=== PATIENT | male | born 1965 ===

== ENCOUNTER 2017-06-14 11:23 | Inpatient (IN) | payer OTHER ==
[2017-06-14] MEDS ORDERED: Sodium Chloride 0.9% 1,000 ML IV STA ×2 (12:15→12:23)
--- NOTE | 2017-06-14 12:34 | ED PDOC ---
HPI: Abdomen Time Seen by Provider: 06/14/17 12:14 Chief Complaint (Nursing): Abdominal Pain Chief Complaint (Provider): Gross abdominal pain and blood in stool History Per: Patient (Bradley yegretchen davila patient presents to ED for evaluation with concern of abdominal pain and bloddy stool noted this morning, 30 monutes prior to arrival. Pt reports yesterday he has no symptoms. Pt reports this morning he awoke with feeling of chills and feeling "faint". Pt reports he could not consume food this morning. Urinated this morning with no issue. Pt reports on attempt to later defacate he noted a large amount of bright red blood, and passed neitther solid no fluid mass. This finding prompted pt to preent to ED. Pt describes pain throughout abdomen as sharp and stabbing. ) History/Exam Limitations: no limitations Onset/Duration Of Symptoms: Hrs (4) Current Symptoms Are (Timing): Still Present Severity: Severe Pain Scale Rating Of: 8 Location Of Pain/Discomfort: Diffuse Quality Of Discomfort: Sharp Associated Symptoms: Chills Exacerbating Factors: Movement, Upright Position, Deep Breaths Alleviating Factors: None Last Bowel Movement: Yesterday Past Medical History Vital Signs: Last Vital Signs Temp 98.6 F 06/14/17 11:26 Pulse 90 06/14/17 11:26 Resp 16 06/14/17 11:26 BP 141/84 06/14/17 11:26 Pulse Ox 100 06/14/17 12:41 - Medical History PMH: Anxiety, GERD Denies: Gastritis (denies), Chronic Kidney Disease - Family History Family History: States: No Known Family Hx - Living Arrangements Living Arrangements: With Family - Immunization History Hx Tetanus Toxoid Vaccination: No Hx Influenza Vaccination: No Hx Pneumococcal Vaccination: No - Home Medications Home Medications: Ambulatory Orders Medication Instructions Recorded ALPRAZolam [Xanax] 0.5 mg PO BID 06/18/16 Lidocaine 5% [Lidoderm] 1 ea TD PRN PRN #10 patch 06/19/16 Lipase/Protease/Amylase [Creon Dr 1 tab PO DAILY 08/19/16 3,000 Units Capsule] Lubiprostone [Amitiza] 24 mcg PO DAILY 08/19/16 traMADol 50 mg PO Q6H PRN 08/19/16 Nexium 40 mg PO 08/20/16 Linzess 145 mcg PO DAILY 08/22/16 Famotidine [Pepcid] 20 mg PO DAILY #14 tab 10/16/16 Sucralfate [Carafate] 1 gm PO TID #30 dose 10/16/16 - Allergies Allergies/Adverse Reactions: Allergies Allergy/AdvReac Type Severity Reaction Status Date / Time shellfish derived Allergy Severe ANAPHYLAXIS Verified 10/16/16 12:18 latex AdvReac RASH Verified 06/14/17 11:36 Nuts Allergy SHORTNESS Uncoded 06/14/17 11:36 OF BREATH Review of Systems ROS Statement: Except As Marked, All Systems Reviewed And Found Negative Constitutional: Positive for: Chills Gastrointestinal: Positive for: Abdominal Pain. Negative for: Diarrhea, Rectal Pain Physical Exam - Reviewed Vital Signs Reviewed: Yes - Physical Exam Appears: Positive for: Non-toxic, Uncomfortable Skin: Positive for: Normal Color Eye Exam: Positive for: Normal appearance, EOMI ENT: Positive for: Normal ENT Inspection. Negative for: Tonsillar Swelling Neck: Positive for: Normal, Painless ROM Respiratory: Positive for: Normal Breath Sounds. Negative for: Wheezing, Respiratory Distress Gastrointestinal/Abdominal: Positive for: Bowel Sounds, Tenderness, Distended. Negative for: Rebound Male Genital Exam: Positive for: inguinal tenderness. Negative for: epididymal tenderness, erythema, testicular tenderness (R), testicular tenderness (L) Back: Positive for: Normal Inspection Rectal: Negative for: Hemorrhoids, Tenderness Extremity: Positive for: Normal ROM. Negative for: Pedal Edema, Calf Tenderness - Laboratory Results Result Diagrams: 06/14/17 12:31 06/14/17 12:31 - ECG O2 Sat by Pulse Oximetry: 100 Disposition - Clinical Impression Clinical Impression: Abdominal pain - Disposition Disposition Time: 13:05 Condition: IMPROVED Forms: [facility] ([place]an)
[2017-06-14 12:40] LABS: VENOUS BLOOD GAS BASE EXCESS 2.6 mmol/L (0.0-2.0); VENOUS BLOOD GAS PCO2 47 mmHg (40-60); VENOUS BLOOD PH 7.39 (7.32-7.43)
[2017-06-14 12:43] LABS: RBC URINE 1 /hpf (0-3); URINE BILIRUBIN NEGATIVE (NEGATIVE); URINE BLOOD NEGATIVE (NEGATIVE); URINE COLOR STRAW (YELLOW); URINE GLUCOSE (UA) NEG (Normal); URINE KETONE NEGATIVE (NEGATIVE); URINE LEUKOCYTE ESTERASE NEG Leu/uL (Negative); URINE PROTEIN NEGATIVE (NEGATIVE); URINE UROBILINOGEN 0.2-1.0 mg/dL (0.2-1.0)
[2017-06-14 12:43] LABS: BASO # 0.1 K/uL (0.0-0.2); EOS # 0.1 K/uL (0.0-0.7); EOS % 1.8 % (0.0-4.0); HEMATOCRIT 44.9 % (35.0-51.0); LYMPH # 1.4 K/uL (1.0-4.3); LYMPH % 22.8 % (20.0-40.0); MEAN CELL VOLUME 88.3 fl (80.0-94.0); MEAN CORPUSCULAR HEMOGLOBIN 29.8 pg (27.0-31.0); MEAN CORPUSCULAR HGB CONC 33.8 g/dL (33.0-37.0); MONO # 0.6 K/uL (0.0-0.8); MONO % 10.2 % (0.0-10.0); NEUT % 64.2 % (50.0-75.0); NRBC % 0.1 % (0.0-0.0); RED CELL DISTRIBUTION WIDTH 13.6 % (11.5-14.5); WHITE BLOOD COUNT 6.2 K/uL (4.8-10.8)
[2017-06-14 13:02] LABS: ALB/GLOB RATIO 1.5 (1.0-2.1); ALKALINE PHOSPHATASE 73 U/L (38-126); ALT/SGPT 44 U/L (21-72); AST/SGOT 35 U/L (17-59); BILIRUBIN,TOTAL 0.5 mg/dl (0.2-1.3); BLOOD UREA NITROGEN 13 mg/dl (9-20); CALCIUM 9.4 mg/dL (8.4-10.2); CARBON DIOXIDE 25 mmol/L (22-30); CHLORIDE 106 mmol/L (98-107); GFR AFRICAN-AMERICAN > 60; GLUCOSE,RANDOM 98 mg/dL (75-110); LIPASE 167 U/L (23-300); POTASSIUM 4.4 MMOL/L (3.6-5.0); SODIUM 140 mmol/l (132-148)
[2017-06-14] MEDS ORDERED: Iohexol 300 100 ML IJ ONE (14:09)
[2017-06-14] MEDS ORDERED: Sodium Chloride 0.9% 50 ML IV ONE (14:09)
--- NOTE | 2017-06-14 15:01 | CT ---
PROCEDURE: CT Abdomen and Pelvis with contrast HISTORY: abd distension, LLQ tenderness, bloody stool COMPARISON: Noncontrast abdomen and pelvis CT exam 02/17/2014. TECHNIQUE: Helical CT of the abdomen pelvis was performed following intravenous contrast administration. Oral contrast was not administered as per referring physician request. Contrast dose: Omnipaque 300, 95 cc. Radiation dose: Total exam DLP = 1588 mGy-cm. This CT exam was performed using one or more of the following dose reduction techniques: Automated exposure control, adjustment of the mA and/or kV according to patient size, and/or use of iterative reconstruction technique. FINDINGS: LOWER THORAX: Limited bilateral basilar dependent atelectasis is appreciated. Punctate calcified granuloma again seen the left lower lobe. LIVER: Multiple small lucencies are slightly larger in the interval of the left lobe liver with the largest measuring 2.6 cm greatest dimension compared to 1.9 cm previously. GALLBLADDER AND BILE DUCTS: Unremarkable. PANCREAS: Unremarkable. No gross lesion or ductal dilatation. SPLEEN: Unremarkable. ADRENALS: Unremarkable. No mass. KIDNEYS AND URETERS: Unremarkable. No hydronephrosis. No solid mass. VASCULATURE: Unremarkable. No aortic aneurysm. BOWEL: Left colonic diverticular changes are appreciated seen concentrated at the sigmoid segment without acute findings however. Small bowel is unremarkable. No mesenteric edema appreciated throughout. APPENDIX: Normal appendix. PERITONEUM: Unremarkable. No free fluid. No free air. LYMPH NODES: Unremarkable. No enlarged lymph nodes. BLADDER: Unremarkable. REPRODUCTIVE: Unremarkable. BONES: No acute fracture. OTHER FINDINGS: None. IMPRESSION: 1. Left colonic diverticular changes are identified without acute findings. Lack of oral contrast administration limits evaluation of the small and large bowel. No mesenteric edema, ascites or gross lymphadenopathy. 2. Left hepatic lobe cysts slightly larger with examination otherwise unremarkable.
--- NOTE | 2017-06-14 15:31 | RAD ---
HISTORY: Abdominal pain. Free air suspected. COMPARISON: June 14, 2017. TECHNIQUE: Chest PA and lateral FINDINGS: LUNGS: No active pulmonary disease. PLEURA: No significant pleural effusion identified. No pneumothorax apparent. CARDIOVASCULAR: No radiographic findings to suggest acute or significant cardiovascular disease. OSSEOUS STRUCTURES: No significant abnormalities. VISUALIZED UPPER ABDOMEN: Normal. OTHER FINDINGS: None. IMPRESSION: No active disease. Specifically no free air identified.
--- NOTE | 2017-06-14 15:32 | RAD ---
PROCEDURE: Radiographs of the chest and abdomen (obstructive series) HISTORY: Abdominal pain and distention. COMPARISON: June 14, 2017. TECHNIQUE: AP radiograph of the chest, with upright and supine radiographs of the abdomen. FINDINGS: CHEST: Lungs: Clear. Cardiovascular: Normal size heart. No pulmonary vascular congestion. Pleura: No pleural fluid. No pneumothorax. Other findings: None. ABDOMEN AND PELVIS: Bowel: Unremarkable bowel gas pattern. No evidence of mechanical obstruction. Free air: None. Bones: Unremarkable. Other findings: Contrast identified in unremarkable collecting systems and urinary bladder. IMPRESSION: No acute findings related to/accounting for the clinical presentation.
--- NOTE | 2017-06-14 17:18 | ED PDOC ---
- Laboratory Results Result Diagrams: 06/14/17 12:31 06/14/17 12:31 - ECG ECG: Positive for: Interpreted By Me ECG Rhythm: Positive for: Normal QRS, ST/T Changes (2,v3,v4,v5,v6 new when compared to prev ecg 10/24) O2 Sat by Pulse Oximetry: 98 Pulse Ox Interpretation: Normal - Radiology X-Ray: Interpreted by Me X-Ray Interpretation: No Acute Disease - Progress Re-evaluation Time: 17:16 Condition: Improved Disposition Counseled Patient/Family Regarding: Studies Performed, Diagnosis, Need For Followup - Clinical Impression Clinical Impression: Abdominal pain, Near syncope - POA Present On Arrival: None - Disposition Disposition: Hospitalized as Observation Patient Disposition Time: 17:00 Condition: STABLE Forms: [facility] (Tajik)
[2017-06-15 06:46] LABS: HEMATOCRIT 42.7 % (35.0-51.0); MEAN CELL VOLUME 89.3 fl (80.0-94.0); MEAN CORPUSCULAR HEMOGLOBIN 29.6 pg (27.0-31.0); MEAN CORPUSCULAR HGB CONC 33.1 g/dL (33.0-37.0); RED CELL DISTRIBUTION WIDTH 14.2 % (11.5-14.5); WHITE BLOOD COUNT 7.8 K/uL (4.8-10.8)
[2017-06-15 06:49] LABS: PARTIAL THROMBOPLASTIN TIME 31.2 Seconds (25.6-37.1)
[2017-06-15] MEDS ORDERED: Chlorhexidine Gluconate 1 APPL/PKT TP ONE (08:11)
--- NOTE | 2017-06-15 08:38 | CP.PCM.CON ---
<Mary Ann Keith - Last Filed: 06/15/17 10:15> History of Present Illness - History of Present Illness History of Present Illness: PGY4 Initial GI Progress Note Moise Ch is a 51M w/ hx of anxiety and GERD who presented to the ER with complaints of BRBPR and abd pain. Pt statesthat he started to notice blood in his stool for the past 3-4months. He states that initially he would have intermittent bright red blood on his stool and while wiping. He denies any episodes of constipation or straining. He notes that yesterday he started to experience diffuse and pain with no focal area. He described the pain as being crampy. Pt states that in the morning he was also having a lack of appetite and chills. He denies any fevers or diaphoresis. Pt denies any recent travel, sick contacts, or abx use. Pt states that along with his abd pain, he experienced a sudden episode of urgency of having a BM. He described the BM as loose with mixed blood. Denies any recent NSAID use. He denies any similar previous episodes. PMHx: GERD, anxiety PSHx: testicle surgery? Social: Denies etoh, smoking or illicit drug use Endo hx: denies Family hx: mother: unspecified BISQUE TILE BURNER cancer ROS: 12-point ROS conducted, neg other than above Past Patient History - Infectious Disease Hx of Infectious Diseases: None - Past Medical History & Family History Past Medical History?: Yes - Past Social History Smoking Status: Never Smoked - CARDIAC Hx Cardiac Disorders: No - PULMONARY Hx Respiratory Disorders: Yes Other/Comment: Sinusitis - NEUROLOGICAL Hx Neurological Disorder: No - HEENT Hx HEENT Problems: No - RENAL Hx Chronic Kidney Disease: No - ENDOCRINE/METABOLIC Hx Endocrine Disorders: Yes Other/Comment: functional Hypoglycemia - HEMATOLOGICAL/ONCOLOGICAL Hx Blood Disorders: No - INTEGUMENTARY Hx Dermatological Problems: Yes Other/Comment: Chickenpox. - MUSCULOSKELETAL/RHEUMATOLOGICAL Hx Falls: No - GASTROINTESTINAL Hx Gastritis: No (denies) - GENITOURINARY/GYNECOLOGICAL Other/Comment: Had surgery on left testicle in 2000 for vascular problem - PSYCHIATRIC Hx Anxiety: Yes Hx Substance Use: No - SURGICAL HISTORY Hx Surgeries: Yes Other/Comment: Sinus Surgery. Left testicle - ANESTHESIA Hx Anesthesia: Yes Hx Anesthesia Reactions: No Meds Allergies/Adverse Reactions: Allergies Allergy/AdvReac Type Severity Reaction Status Date / Time shellfish derived Allergy Severe ANAPHYLAXIS Verified 10/16/16 12:18 latex AdvReac RASH Verified 06/14/17 11:36 Nuts Allergy SHORTNESS Uncoded 06/14/17 11:36 OF BREATH - Medications Medications: Current Medications Alprazolam (Xanax) 0.5 mg PO TID [facility] Last Admin: 06/15/17 00:51 Dose: 0.5 mg Lidocaine (Lidoderm) 1 ea TD DAILY PRN PRN Reason: Pain, Mild (1-3) Pantoprazole Sodium (Protonix Inj) 40 mg IVP DAILY@2200 [facility] Last Admin: 06/15/17 00:54 Dose: 40 mg Physical Exam - Head Exam Head Exam: ATRAUMATIC, NORMOCEPHALIC - Eye Exam Eye Exam: Normal appearance - ENT Exam ENT Exam: Mucous Membranes Moist, Normal Exam - Respiratory Exam Respiratory Exam: Clear to Auscultation Bilateral, NORMAL BREATHING PATTERN. absent: Rales, Rhonchi, Wheezes - Cardiovascular Exam Cardiovascular Exam: REGULAR RHYTHM, +S1, +S2 - GI/Abdominal Exam GI & Abdominal Exam: Normal Bowel Sounds, Soft. absent: Guarding, Rebound, Rigid, Tenderness - Rectal Exam Additional comments: brown stool and blood tinged - Extremities Exam Extremities exam: Positive for: normal inspection. Negative for: joint swelling , tenderness - Neurological Exam Neurological exam: Alert, Normal Gait, Oriented x3 - Psychiatric Exam Psychiatric exam: Anxious, Normal Mood - Skin Skin Exam: Dry, Normal Color, Warm Additional comments: flat papules over right collar bone and neck Results - Vital Signs Recent Vital Signs: Last Vital Signs Temp 98.3 F 06/15/17 08:00 Pulse 65 06/15/17 08:00 Resp 18 06/15/17 08:00 BP 117/71 06/15/17 08:00 Pulse Ox 96 06/15/17 08:00 - Labs Result Diagrams: 06/15/17 06:10 06/14/17 12:31 Labs: Laboratory Results - last 24 hr 06/15/17 06/15/17 06/15/17 00:01 06:10 06:10 WBC 7.8 RBC 4.78 Hgb 14.1 Hct 42.7 MCV 89.3 MCH 29.6 MCHC 33.1 RDW 14.2 Plt Count 204 PT 12.5 INR 1.2 APTT 31.2 Troponin I < 0.0120 Assessment & Plan - Assessment and Plan (Free Text) Assessment: Moise Ch is a 51M w/ hx of anxiety and GERD who presented with BRBPR and and pain; etiology is unknown. DDx: Diverticular, hemorrhoidal vs colitis, vs IBD vs infectous vs malignancy 1. BRBPR, stable hgb, BP normal, no further episodes 2. Abd pain 3. Anxiety Plan: - advance to reg diet -Send for stool culture - hgb stable in the AM - keep hgb above 7 -two large bore IV -continue PPI - CT Abd w/ IV contrast reveled, No PO contrast; hard to assess colon due to lack of PO contrast, no obvious meseteric changes - no need for colonoscopy as inpt, recommend oupt screening - gave pt contact info for oupt office D[facility] Last Filed: 06/15/17 10:37> Meds - Medications Medications: Current Medications Alprazolam (Xanax) 0.5 mg PO TID [facility] Last Admin: 06/15/17 10:13 Dose: 0.5 mg Lidocaine (Lidoderm) 1 ea TD DAILY PRN PRN Reason: Pain, Mild (1-3) Morphine Sulfate (Morphine) 2 mg IVP Q6 PRN PRN Reason: Pain, moderate (4-7) Last Admin: 06/15/17 10:14 Dose: 2 mg Pantoprazole Sodium (Protonix Inj) 40 mg IVP DAILY@2200 [facility] Last Admin: 06/15/17 00:54 Dose: 40 mg Results - Vital Signs Recent Vital Signs: Last Vital Signs Temp 98.3 F 06/15/17 08:00 Pulse 65 06/15/17 08:00 Resp 18 06/15/17 08:00 BP 117/71 06/15/17 08:00 Pulse Ox 96 06/15/17 08:00 - Labs Result Diagrams: 06/15/17 06:10 06/14/17 12:31 Labs: Laboratory Results - last 24 hr 06/15/17 06/15/17 06/15/17 00:01 06:10 06:10 WBC 7.8 RBC 4.78 Hgb 14.1 Hct 42.7 MCV 89.3 MCH 29.6 MCHC 33.1 RDW 14.2 Plt Count 204 PT 12.5 INR 1.2 APTT 31.2 Troponin I < 0.0120 06/15/17 08:01 WBC RBC Hgb Hct MCV MCH MCHC RDW Plt Count PT INR APTT Troponin I < 0.0120 Attending/Attestation - Attestation I have personally seen and examined this patient.: Yes I have fully participated in the care of the patient.: Yes I have reviewed all pertinent clinical information: Yes Notes (Text): 06/15/17 10:33 Patient seen with GI fellow. This is a 51 M w/ hx of anxiety and GERD who presented with BRBPR and and pain; etiology is unknown. DDx: Diverticular, hemorrhoidal vs colitis, vs IBD vs infectous vs malignancy Hb/Hct at baseline. Multiple admissions for same complain with diverticular disease in left colon and self resolved bleeding. pain medication seeking behavior. No urgent indication for luminal endoscopy. Can follow in my office for outpatient procedures. Regular diet. Stool softeners
[2017-06-15] MEDS ORDERED: metroNIDAZOLE 500mg/100ml NS 100 ML IVPB SCH (11:15)
--- NOTE | 2017-06-15 11:24 | CARD ---
APPROVED REPORT EKG Measurement Heart [id number] NM [id number] [id number] <Conclusion> Normal sinus rhythm T wave abnormality, consider anterolateral ischemia Abnormal ECG
[2017-06-15] MEDS: Ciprofloxacin 400mg/200ml D5W 400 MG/200 ML BAG IVPB SCH ×2 (13:16→22:00)
[2017-06-15] MEDS: Dextrose 5%/0.9% NS 1,000 ML IV SCH (13:17)
--- NOTE | 2017-06-15 15:45 | PN ---
DATE: SUBJECTIVE: The patient has a retrosternal chest pain. No recurrent rectal bleeding since yesterday. He denies any dizziness. He is still experiencing bilateral lower quadrant pain. No nausea or vomiting. No reported arrhythmia on monitor. PHYSICAL EXAMINATION VITAL SIGNS: Blood pressure 117/71, heart rate 65, temperature 98.3, respirations 18. HEENT: Normocephalic. NECK: No JVD. CHEST: Clear. HEART: S1 and S2 regular. ABDOMEN: Soft. EXTREMITIES: No edema. LABORATORY DATA: Hemoglobin and hematocrit 14.1 and 42.7, of 1 g of hemoglobin. White count and platelet count are within normal limits. Three sets of troponins are negative. I reviewed the gastroenterology consultation and recommendation was to advance to regular diet and sent for stool culture. A repeat hemoglobin in the a.m. Continue IV Protonix and no need for colonoscopy as an inpatient, recommended as outpatient. ASSESSMENT: 1. Phillips diverticulosis. 2. Rule out diverticulitis and diverticular bleed. 3. Abnormal EKG with evidence of anterior ischemia, myocardial infarction ruled out. 4. Morbid obesity. 5. Sleep apnea. RECOMMENDATIONS: Continue current IV Protonix 40 mg once a day and Xanax 0.5 mg t.i.d. The patient stated to undergo echocardiography study today, which I will review. I will repeat EKG today. Roberto Carlos Gonzalez MD
--- NOTE | 2017-06-15 18:12 | CARD ---
APPROVED REPORT EXAM: Two-dimensional and M-mode echocardiogram with Doppler and color Doppler. Other Information Quality : AverageRhythm : NSR INDICATION Abnormal EKG/Arrhythmia Chest Pain 2D DIMENSIONS IVSd1.21 (0.7-1.1cm)LVDd4.74 (3.9-5.9cm) LVOT Diameter2.26 (1.8-2.4cm)PWd1.01 (0.7-1.1cm) IVSs1.74 (0.8-1.2cm)LVDs2.94 (2.5-4.0cm) FS (%) 38.0 %PWs1.40 (0.8-1.2cm) M-Mode DIMENSIONS Left Atrium (MM)4.53 (2.5-4.0cm)IVSd1.03 (0.7-1.1cm) Aortic Root3.61 (2.2-3.7cm)LVDd5.86 (4.0-5.6cm) Aortic Cusp Exc.2.38 (1.5-2.0cm)PWd1.06 (0.7-1.1cm) IVSs1.89 cmFS (%) 34 % LVDs3.84 (2.0-3.8cm)PWs1.46 cm Mitral Valve MV E Tmaiiido76.6cm/sMV DECEL [id number] A Nsrvvgpq10.1cm/s MV JTQ87hlF/A ratio1.1MVA (PHT)3.42cm2 TDI E/Lateral E'0.0E/Medial E'0.0 Pulmonary Valve PV Peak Nymctzqr360.8cm/s LEFT VENTRICLE The left ventricle is normal size. There is normal left ventricular wall thickness. The left ventricular function is normal. The left ventricular ejection fraction is 55% There is normal LV segmental wall motion. The left ventricular diastolic function is normal. No left ventricle thrombus noted on this study. There is no ventricular septal defect visualized. There is no left ventricular aneurysm. There is no mass noted in the left ventricle. RIGHT VENTRICLE The right ventricle is normal size. There is normal right ventricular wall thickness. The right ventricular systolic function is normal. ATRIA The left atrium size is normal. The right atrium size is normal. The interatrial septum is intact with no evidence for an atrial septal defect. AORTIC VALVE The aortic valve is normal in structure and function. No aortic regurgitation is present. There is no aortic valvular stenosis. There is no aortic valvular vegetation. MITRAL VALVE The mitral valve is normal in structure and function. There is no evidence of mitral valve prolapse. There is no mitral valve stenosis. There is no mitral valve regurgitation noted. TRICUSPID VALVE The tricuspid valve is normal in structure and function. There is no tricuspid valve regurgitation noted. There is no tricuspid valve prolapse or vegetation. There is no tricuspid valve stenosis. PULMONIC VALVE The pulmonary valve is normal in structure and function. There is no pulmonic valvular regurgitation. There is no pulmonic valvular stenosis. GREAT VESSELS The aortic root is normal in size. The ascending aorta is normal in size. The IVC is normal in size and collapses >50% with inspiration. PERICARDIAL EFFUSION The pericardium appears normal. There is no pleural effusion. <Conclusion> Normal Echocardiogram
--- NOTE | 2017-06-15 18:21 | CARD ---
APPROVED REPORT EKG Measurement Heart [id number] ND [id number] [id number] <Conclusion> Normal sinus rhythm T wave abnormality, consider anterior ischemia Abnormal ECG
--- NOTE | 2017-06-15 20:49 | CON ---
CARDIOLOGY CONSULT REASON FOR CONSULTATION: Thrombotic lesion. HISTORY OF PRESENT ILLNESS: The patient is a 51 years old, morbidly obese male who has history of anxiety and was told that he has diverticulosis. In the past, he presented because of bleeding. The patient did experience very cold and chilly as well as dizzy and noticed red blood per rectum (00:32) bilateral lower quadrant pain. The patient denied any nausea or vomiting. He denied any chest pain. The patient unaware of any prior cardiac history. SOCIAL HISTORY: The patient is a nonsmoker, nondrinker. He is . MEDICATIONS: The patient's home medications include ibuprofen, vitamin D3, omega-3 fatty acid, multivitamin, alprazolam 0.5 mg t.i.d. for anxiety. The current hospital medications are Protonix 40 mg once a day and Xanax 0.5 mg t.i.d. PAST MEDICAL HISTORY: History of sleep apnea. The patient is on CPAP at home and follows with his financial underwriter, (01:44). PHYSICAL EXAMINATION: GENERAL: The patient is a middle-aged male, who does not appear to be in acute distress at this time. VITAL SIGNS: Blood pressure 154/75, heart rate 56, temperature 97.7, respirations 16. HEENT: Normocephalic. CHEST: Clear. HEART: S1 and S2 regular and distant. ABDOMEN: Soft. EXTREMITIES: No edema or calf tenderness. LABORATORY DATA: Hemoglobin and hematocrit 15.2 and 44.9, white count 6.2, platelet count 220,000. SMA-7: Sodium 140, potassium is 4.4, chloride 106, CO2 of 25, glucose 98, BUN 15, creatinine 1.1. One set of troponin is negative. IMAGING: EKG revealed sinus rhythm at the rate of 67, anterior T wave inversion, consider anterolateral ischemia. Abdomen and pelvis CT scan revealed left colonic diverticular changes without acute findings. Lack of oral contrast administration limits evaluation of the small and large bowels. No mesenteric ischemia, ascites, or gross significant adenopathy. Left hepatic lobe cyst slightly larger with examination, otherwise unremarkable. Last year echocardiogram study done in June was unremarkable except for left ventricular diastolic dysfunction. ASSESSMENT: 1. Consider acute diverticular bleed. 2. Ischemic anterolateral EKG changes, most likely related to the acute blood loss rather than underlying coronary artery disease. 3. Morbid obesity. 4. Sleep apnea. 5. An anxiety disorder. RECOMMENDATIONS: Continue IV Protonix at 40 mg once a day and Xanax 0.5 mg t.i.d. Monitor daily EKGs and serial cardiac enzymes. I requested an echocardiogram study to be done in the a.m. I also requested CPAP to be applied tonight. The patient will be evaluated with a automotive technician instructor in a.m. Follow up CBC in a.m. and obtain PT and PTT. Roberto Carlos Gonzalez MD
[2017-06-16] MEDS: Dextrose 5%/0.9% NS 1,000 ML IV SCH (00:10)
[2017-06-16 04:52] LABS: BASO # 0.1 K/uL (0.0-0.2); BASO % 0.9 % (0.0-2.0); EOS # 0.4 K/uL (0.0-0.7); EOS % 4.5 % (0.0-4.0); HEMATOCRIT 44.9 % (35.0-51.0); LYMPH # 2.9 K/uL (1.0-4.3); LYMPH % 36.8 % (20.0-40.0); MEAN CELL VOLUME 88.6 fl (80.0-94.0); MEAN CORPUSCULAR HGB CONC 32.7 g/dL (33.0-37.0); MEAN PLATELET VOLUME 8.2 fl (7.2-11.7); MONO # 0.7 K/uL (0.0-0.8); MONO % 9.2 % (0.0-10.0); NEUT # 3.8 K/uL (1.8-7.0); NEUT % 48.6 % (50.0-75.0); NRBC % 0.2 % (0.0-0.0); RED CELL DISTRIBUTION WIDTH 13.7 % (11.5-14.5); WHITE BLOOD COUNT 7.9 K/uL (4.8-10.8)
--- NOTE | 2017-06-16 04:55 | HP ---
HISTORY OF PRESENT ILLNESS: This is a 51-year-old male with history of sleep apnea, on CPAP, presented to emergency room with symptoms of near syncopal episode followed by rectal bleeding noticed by the patient at home. The patient presented to the emergency room for evaluation. He did not have any active bleeding at that time, but because of the present symptoms as well as inverted T wave in EKG, the patient was admitted for further management. The patient is still complaining of abdominal pain at the time of this evaluation. The patient was seen by cw operator. REVIEW OF SYSTEMS: Other review of systems is negative. ALLERGIES: THE PATIENT HAS ALLERGY TO SHELLFISH, LATEX AND NUTS. HOME MEDICATIONS: Ibuprofen 400 mg 3 times a day, vitamin D3 2000 units daily, multivitamin 1 tablet daily, Dexilant 60 mg daily, Xanax 0.5 mg 3 times a day. SOCIAL HISTORY: No history of smoking, EtOH, or substance abuse. FAMILY HISTORY: Not contributory. PAST MEDICAL HISTORY: Back pain, gastroesophageal reflux disease, history of diverticular bleed about 3 years ago, and the patient had colonoscopy around the same time. Sleep apnea, on CPAP. PHYSICAL EXAMINATION: GENERAL: The patient is a bit comfortable at the time of this examination with no cardiopulmonary distress. VITAL SIGNS: Blood pressure 124/79, temperature 98.1, respiratory rate 18, and pulse 63. HEENT: Pupils equal, reactive to light. Normal-appearing mucosa of the conjunctivae, oropharyngeal and nasal membrane mucosa. NECK: Supple. No JVD. No carotid bruit. No lymph node. No thyromegaly. CHEST AND LUNGS: Bilateral symmetrical expansion. Good air exchange. No rales, no rhonchi. CARDIOVASCULAR SYSTEM: PMI not localized. S1, S2. No additional sounds. ABDOMEN: Normoactive bowel sounds. No tenderness. Diffuse tenderness in the lower abdomen. No organomegaly. No masses. EXTREMITIES: No cyanosis, no clubbing, no edema. BAR TURNER: Alert, awake, and oriented x3. No neurological deficit could be appreciated. ASSESSMENT: 1. Near syncopal episode with rectal bleeding, likely diverticular as it is shown in the CAT scan of the abdomen. 2. Abdominal pain with possible diverticulitis. 3. Inverted abnormal EKG. 4. Sleep apnea syndrome. 5. 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 PLAN: We will start the patient on IV fluid, clear liquid diet, Cipro and Flagyl, GI consult and cardiology consult and follow the recommendations. We will monitor hemoglobin and hematocrit. [facility] MD Orlin
[2017-06-16] MEDS: Ciprofloxacin 400mg/200ml D5W 400 MG/200 ML BAG IVPB SCH ×2 (09:43→21:23)
[2017-06-17] MEDS: Ciprofloxacin 400mg/200ml D5W 400 MG/200 ML BAG IVPB SCH ×2 (10:07→20:36)
[2017-06-17] MEDS: Lidocaine 5% Patch TD PRN ×2 (10:08→17:21)
--- NOTE | 2017-06-18 01:30 | PN ---
DATE: 06/17/2017 SUBJECTIVE: The patient is seen today, 06/17/2017. He is having less abdominal pain. He is on both Cipro and Flagyl. PHYSICAL EXAMINATION: VITAL SIGNS: Blood pressure is 120/70, temperature 98.4, respiratory rate 18, and pulse is 72. HEENT: Pupils equal, reactive to light. Normal-appearing mucosa of the conjunctivae, oropharyngeal and nasal membrane mucosa. NECK: Supple. No JVD. No carotid bruit. No lymph node. No thyromegaly. CHEST AND LUNGS: Bilateral symmetrical expansion. Good air exchange. No rales, no rhonchi. CARDIOVASCULAR SYSTEM: PMI not localized. S1, S2. No additional sounds. ABDOMEN: Normoactive bowel sounds. No tenderness. No organomegaly. No masses. EXTREMITIES: No cyanosis, no clubbing, no edema. INTERNATIONAL MARKETING INTERN: Alert, awake, and oriented x3. No neurological deficit could be appreciated. ASSESSMENT: 1. Rectal bleeding. 2. Diverticulosis with possible diverticulitis. 3. Sleep apnea. PLAN: Continue current IV antibiotics. Monitor hemoglobin and hematocrit. Advance diet as tolerated. [place] MD Orlin
[2017-06-18 08:13] VITALS: RESP 18
[2017-06-18] MEDS: Ciprofloxacin 400mg/200ml D5W 400 MG/200 ML BAG IVPB SCH (08:58)
[2017-06-18] MEDS ORDERED: Pantoprazole 40 mg EC Tab PO SCH (09:00)
[2017-06-18] MEDS: Lidocaine 5% Patch TD PRN (09:04)
[2017-06-18 12:06] VITALS: BP 128/88; PULSE 79; TEMP 97.9; O2SAT 99
[2017-06-18 15:18] VITALS: BMI 41.3
--- NOTE | 2017-06-18 18:33 | PN ---
SUBJECTIVE: The patient denies any dizziness, shortness of breath, or chest pain. No leg pain. No recurrent rectal bleeding. PHYSICAL EXAMINATION: VITAL SIGNS: Blood pressure of 122/88, heart rate of 79, temperature of 97.9, respiration 18. HEENT: Normocephalic. NECK: NO JVD. CHEST: Clear. HEART: S1 and S2 regular. ABDOMEN: Soft. EXTREMITIES: No edema. LABORATORY DATA: A total of 4 troponins are within normal limits. Echocardiograph study was a normal study. ASSESSMENT: 1. Diverticulosis. 2. Rectal bleeding, rule out diverticular bleed. 3. Abnormal EKG on admission and the patient has been chest pain-free. 4. Sleep apnea. RECOMMENDATIONS: Continue Flagyl 500 mg q. 8 hours, IV Cipro 400 mg q. 12 hours, Protonix 40 mg once a day, Xanax 0.5 mg q. 8 hours. Repeat 12-lead EKG today. Roberto Carlos Gonzalez MD
--- NOTE | 2017-06-19 08:52 | CARD ---
APPROVED REPORT EKG Measurement Heart [id number] <Conclusion> Normal sinus rhythm Left axis deviation Abnormal ECG
--- NOTE | 2017-06-19 09:21 | DS ---
REASON FOR ADMISSION: This is a 51 years old male with a history of sleep apnea and was admitted with rectal bleeding and abdominal pain. COURSE OF HOSPITALIZATION: The patient was admitted to telemetry floor and he had also a cardiology consultation due to nonspecific T-wave changes on the EKG. The patient had a GI consultation by Dr. Velasquez maciel. The patient continues to have abdominal pain and he was started on both Cipro and Flagyl. Pain subsequently resolved. During this hospitalization, the patient had no obvious rectal bleeding and hemoglobin remained stable. The patient was cleared by both cardiology and GI for discharge and he was discharged on both Cipro and Flagyl to continue for another week with probiotics. FINAL DIAGNOSES: 1. Rectal bleeding, likely diverticular bleed. 2. Possible diverticulitis. 3. Sleep apnea. PLAN: Follow up with primary care physician and also with head grinder for a colonoscopy. Annia Ordaz MD
== END 2017-06-18 14:45 | disposition home or self-care (01) | DRG 378 ==
LOC: H.ER 11:23 → H.ERHOLD 19:13 → H.TEL 20:33 → OBSVTOIN 06-15 11:16 → H.TEL 06-15 12:20
PROVIDERS: ADMIT Internal Medicine; ATTEND Internal Medicine
PROC: 5A09457 Assistance with Respiratory Ventilation, 24-96 Consecutive Hours, Continuous Positive Airway Pressure (ICD-10-PCS; principal; 2017-06-15)
DX: K57.31 Diverticulosis of large intestine without perforation or abscess with bleeding (principal); Z68.41 Body mass index [BMI] 40.0-44.9, adult; E66.01 Morbid (severe) obesity due to excess calories; F41.9 Anxiety disorder, unspecified; K21.9 Gastro-esophageal reflux disease without esophagitis; G47.30 Sleep apnea, unspecified; R07.2 Precordial pain; R94.31 Abnormal electrocardiogram [ECG] [EKG]; Z91.013 Allergy to seafood; Z91.040 Latex allergy status; Z91.018 Allergy to other foods

== ENCOUNTER 2019-01-29 19:52 | Observation (INO) | payer MEDICAID, OTHER ==
[2019-01-29 19:52] VITALS: BMI 41.3
--- NOTE | 2019-01-29 21:04 | ED PDOC ---
HPI: Chest Pain Time Seen by Provider: 01/29/19 20:09 Chief Complaint (Nursing): Chest Pain Chief Complaint (Provider): Chest Pain, Shortness of Breath History Per: Patient History/Exam Limitations: no limitations Onset/Duration Of Symptoms: Days (months) Current Symptoms Are (Timing): Still Present Additional Complaint(s): 53 year old male presents to the ED for evaluation of several months of chest pain / pressure associated with shortness of breath. Patient states that recently, his symptoms have been worsening with the development of swelling in his legs and abdomen. Otherwise, denies fever and vomiting. Of note, patient states he recently saw his PMD, but it remains unclear if he brought up these issues. PMD: Dr. Connolly Past Medical History Reviewed: Historical Data, Nursing Documentation, Vital Signs Vital Signs: Last Vital Signs Temp 98.1 F 01/29/19 20:00 Pulse 84 01/29/19 20:00 Resp 16 01/29/19 20:00 BP 124/76 01/29/19 20:00 Pulse Ox 96 01/29/19 20:00 - Medical History PMH: Anxiety, Gastritis (denies), GERD Denies: Chronic Kidney Disease - Surgical History Surgical History: No Surg Hx - Family History Family History: States: Unknown Family Hx - Social History Current smoker - smoking cessation education provided: No Alcohol: None Drugs: Denies - Immunization History Hx Tetanus Toxoid Vaccination: No Hx Influenza Vaccination: No Hx Pneumococcal Vaccination: No - Home Medications Home Medications: Ambulatory Orders Medication Instructions Recorded Alprazolam [Xanax] 0.5 mg PO TID 06/14/17 Dexlansoprazole [Dexilant] 60 mg PO DAILY 06/14/17 Multivitamin [Multi-Vitamin Daily] 1 tab PO DAILY 06/14/17 [place]-3 Fatty Acids/Fish Oil [Fish 2 cap PO DAILY 06/14/17 Oil 1,000 mg Capsule] - Allergies Allergies/Adverse Reactions: Allergies Allergy/AdvReac Type Severity Reaction Status Date / Time shellfish derived Allergy Severe ANAPHYLAXIS Verified 01/29/19 20:00 latex AdvReac RASH Verified 01/29/19 20:00 Nuts Allergy SHORTNESS Uncoded 01/29/19 20:00 OF BREATH KATELYN Risk Score for UA/NSTEMI - KATELYN Risk Score Age > 64: NO 3 or more CAD Risk Factors: NO Known CAD (Stenosis greater than 50%): NO Aspirin use in past 7 days: NO Severe Angina: NO EKG ST changes greater than 0.5mm: NO Positive Cardiac Marker: NO KATELYN Score: 0 Risk %: 5% Review of Systems ROS Statement: Except As Marked, All Systems Reviewed And Found Negative Constitutional: Negative for: Fever Cardiovascular: Positive for: Chest Pain (and pressure) Respiratory: Positive for: Shortness of Breath Gastrointestinal: Positive for: Other (swelling to abdomen). Negative for: Vomiting Musculoskeletal: Positive for: Other (swelling in legs) Physical Exam - Reviewed Nursing Documentation Reviewed: Yes Vital Signs Reviewed: Yes - Physical Exam Appears: Positive for: No Acute Distress, Uncomfortable Head Exam: Positive for: ATRAUMATIC, NORMOCEPHALIC Skin: Positive for: Normal Color, Warm Eye Exam: Positive for: Normal appearance ENT: Positive for: Normal ENT Inspection Neck: Positive for: Normal, Painless ROM, Supple Cardiovascular/Chest: Positive for: Regular Rate, Rhythm Respiratory: Positive for: Normal Breath Sounds. Negative for: Crackles, Rales, Rhonchi, Wheezing, Respiratory Distress Gastrointestinal/Abdominal: Positive for: Distended. Negative for: Tenderness Back: Positive for: Normal Inspection Extremity: Positive for: Normal ROM (all extremities), Swelling (2+ pitting edema to bilateral LE) Neurological/Psych: Positive for: Awake, Alert, Oriented (x3). Negative for: Motor/Sensory Deficits - Laboratory Results Result Diagrams: 01/29/19 21:12 01/29/19 21:12 - ECG ECG: Positive for: Interpreted By Me, Viewed By Me ECG Rhythm: Positive for: Normal ST Segment, Sinus Rhythm (normal at 84bpm). Negative for: ST/T Changes O2 Sat by Pulse Oximetry: 96 (RA) Pulse Ox Interpretation: Normal Medical Decision Making Medical Decision Making: Time: 2003 Initial Impression: chest pain, sob, r/o CHF, r/o PNA, r/o cardiac event Initial Plan: --EKG --CMP --BNP --CBC with differential --Trop I --CXR --Reevaluate 22:50 Labs reviewed and reveal no clinically significant findings. EKG NSR> troponin negative. although the bnp is negative, pt responded well and diuresed after the iv laxix was given. Spoke to Dr. Ordaz who covers DR Connolly patients. who accepted patient for admission. Dr. Ordaz requests an abdominal ultrasound and a consult to the sr. operations manager television schedule coordinator, Dr. Gonzalez. Scribe Attestation: Documented by Judit Agosto, acting as a scribe for Natalie Eid MD. Provider Scribe Attestation: All medical record entries made by the Scribe were at my direction and person ally dictated by me. I have reviewed the chart and agree that the record accurately reflects my personal performance of the history, physical exam, medical decision making, and the department course for this patient. I have also personally directed, reviewed, and agree with the discharge instructions and disposition. Disposition - Clinical Impression Clinical Impression: Chest pain, Abdominal distension - Patient ED Disposition Is Patient to be Admitted: Yes Counseled Patient/Family Regarding: Studies Performed, Diagnosis - Disposition Disposition Time: 22:20 Condition: STABLE - Pt Status Changed To: Hospital Disposition Of: Inpatient - Admit Certification Admit to Inpatient:: After my assessment, the patient will require hospitalization for at least two midnights. This is because of the severity of symptoms shown, intensity of services needed, and/or the medical risk in this patient being treated as an outpatient.
[2019-01-29 21:20] LABS: BASO % 0.8 % (0.0-2.0); EOS # 0.2 K/uL (0.0-0.7); EOS % 3.7 % (0.0-4.0); HEMOGLOBIN 13.5 g/dL (12.0-18.0); LYMPH # 2.4 K/uL (1.0-4.3); LYMPH % 39.7 % (20.0-40.0); MEAN CELL VOLUME 89.8 fl (80.0-94.0); MEAN CORPUSCULAR HEMOGLOBIN 29.6 pg (27.0-31.0); MEAN PLATELET VOLUME 8.2 fl (7.2-11.7); MONO % 15.6 % (0.0-10.0); NEUT # 2.5 K/uL (1.8-7.0); NEUT % 40.2 % (50.0-75.0); NRBC % 0.1 % (0.0-0.0); RBC 4.55 Mil/uL (4.40-5.90); RED CELL DISTRIBUTION WIDTH 14.3 % (11.5-14.5); WHITE BLOOD COUNT 6.1 K/uL (4.8-10.8)
[2019-01-29 21:30] LABS: ALB/GLOB RATIO 1.3 (1.0-2.1); ALBUMIN 3.5 g/dL (3.5-5.0); ALT/SGPT 30 U/L (21-72); AST/SGOT 22 U/L (17-59); BLOOD UREA NITROGEN 16 mg/dl (9-20); CALCIUM 8.8 mg/dL (8.4-10.2); GFR NON-AFRICAN AMERICAN > 60
[2019-01-29 21:44] LABS: B-TYPE NATRIURETIC PEPTIDE 29.4 pg/ml (0-900)
--- NOTE | 2019-01-30 08:20 | CARD ---
APPROVED REPORT Date of service: 01/29/2019 EKG Measurement Heart [id number] <Conclusion> Normal sinus rhythm Nonspecific T wave abnormality Abnormal ECG
[2019-01-30] MEDS ORDERED: Ergocalciferol 50,000 Intl Units Cap PO SCH (09:00)
[2019-01-30] MEDS: Divalproex 500 mg DR(BID formulation) PO SCH ×2 (09:20→16:06)
--- NOTE | 2019-01-30 10:33 | US ---
Date of service: 01/30/2019 HISTORY: distended abdomen COMPARISON: None. TECHNIQUE: Sonographic evaluation of the abdomen. FINDINGS: LIVER: Measures 17.0 cm. Normal echogenicity of the liver parenchyma. Two simple cysts identified. Right lobe cyst, 1.8 x 1.9 x 2.2 cm. Left lobe cyst, 1.9 x 2.2 x 2.3 cm. No solid mass. No biliary dilatation. Smooth contour. GALLBLADDER: No cholelithiasis or mural thickening. COMMON BILE DUCT: Measures 5 mm. No stones. No dilatation. PANCREAS: Unremarkable as visualized. No mass. No ductal dilatation. RIGHT KIDNEY: Measures 12.5cm. Normal echogenicity. No calculus, mass, or hydronephrosis. LEFT KIDNEY: Measures 12.2cm. Normal echogenicity. No calculus, mass, or hydronephrosis. SPLEEN: Normal in size and contour. No mass. AORTA: No aneurysmal dilatation. IVC: Unremarkable. OTHER FINDINGS: None. IMPRESSION: Two simple cysts in the liver. Otherwise unremarkable examination The preliminary findings for this examination were reported by [facility] at 2:18 a.m. on 01/30/2019. There is concurrence of this report with the preliminary findings.
--- NOTE | 2019-01-30 14:15 | RAD ---
Date of service: 01/29/2019 HISTORY: cp COMPARISON: No prior. TECHNIQUE: Chest PA and lateral views FINDINGS: LUNGS: No active pulmonary disease. PLEURA: No significant pleural effusion identified. No pneumothorax apparent. CARDIOVASCULAR: No aortic atherosclerotic calcification present. Normal cardiac size. No pulmonary vascular congestion. OSSEOUS STRUCTURES: No significant abnormalities. VISUALIZED UPPER ABDOMEN: Normal. OTHER FINDINGS: None. IMPRESSION: No active disease.
--- NOTE | 2019-01-30 15:46 | CP.PCM.CON ---
History of Present Illness - History of Present Illness History of Present Illness: pt is a 53 year old male presents to the ED for evaluation of several months of chest pain / pressure associated with shortness of breath. pt on evaluation reported diagnosed with depression and anxiety three years ago, he reported one psychiatric hospitalization at [facility] [place] few weeks ago due to increased depression, related that to increased stress at work resulting in him being on disability and also the of his mother few months ago, pt reported at current time episodes of anxiety, mood down at time rhys denied suicidal or homicidal ideation denied perceptual disturbances pt however complined increased weight gain and sedation with his current medications Past Patient History - Infectious Disease Hx of Infectious Diseases: None - Past Medical History & Family History Past Medical History?: Yes - Past Social History Smoking Status: Never Smoked - CARDIAC Hx Cardiac Disorders: No - PULMONARY Hx Respiratory Disorders: Yes Hx Sleep Apnea: Yes (uses C-Pap at night) Other/Comment: Sinusitis - NEUROLOGICAL Hx Neurological Disorder: No - HEENT Hx HEENT Problems: No - RENAL Hx Chronic Kidney Disease: No - ENDOCRINE/METABOLIC Hx Endocrine Disorders: Yes Other/Comment: functional Hypoglycemia - HEMATOLOGICAL/ONCOLOGICAL Hx Blood Disorders: No - INTEGUMENTARY Hx Dermatological Problems: Yes Other/Comment: Chickenpox. - MUSCULOSKELETAL/RHEUMATOLOGICAL Hx Falls: Yes - GASTROINTESTINAL Hx Gastritis: Yes (denies) - GENITOURINARY/GYNECOLOGICAL Hx Genitourinary Disorders: Yes Other/Comment: Had surgery on left testicle in 2000 for vascular problem - PSYCHIATRIC Hx Anxiety: Yes Hx Substance Use: No - SURGICAL HISTORY Hx Surgeries: Yes Other/Comment: Sinus Surgery. Left testicle - ANESTHESIA Hx Anesthesia: Yes Hx Anesthesia Reactions: No Meds Allergies/Adverse Reactions: Allergies Allergy/AdvReac Type Severity Reaction Status Date / Time shellfish derived Allergy Severe ANAPHYLAXIS Verified 01/29/19 20:00 latex AdvReac RASH Verified 01/29/19 20:00 Nuts Allergy SHORTNESS Uncoded 01/29/19 20:00 OF BREATH - Medications Medications: Current Medications Aspirin (Aspirin Chewable) 81 mg PO DAILY [facility] Last Admin: 01/30/19 09:19 Dose: 81 mg Clonazepam (Klonopin) 1 mg PO TID [facility] Last Admin: 01/30/19 13:25 Dose: 1 mg Divalproex Sodium (Depakote Dr(*Bid*)) 500 mg PO BID [facility] Last Admin: 01/30/19 09:20 Dose: 500 mg Enoxaparin Sodium (Lovenox) 40 mg SC DAILY [facility]; Protocol Ergocalciferol (Drisdol 50,000 Intl Units Cap) 1 cap PO QWK [facility] Furosemide (Lasix) 20 mg IVP Q12 [facility] Last Admin: 01/30/19 09:23 Dose: 20 mg Quetiapine Fumarate (Seroquel) 50 mg PO TID [facility] Last Admin: 01/30/19 13:26 Dose: 50 mg Quetiapine Fumarate (Seroquel) 100 mg PO HS [facility] Results - Vital Signs Recent Vital Signs: Last Vital Signs Temp 97.6 F 01/30/19 13:21 Pulse 74 01/30/19 13:21 Resp 18 01/30/19 13:21 BP 115/72 01/30/19 13:21 Pulse Ox 94 L 01/30/19 13:21 - Labs Result Diagrams: 01/29/19 21:12 01/29/19 21:12 Labs: Laboratory Results - last 24 hr 01/29/19 01/29/19 01/30/19 21:12 21:12 05:41 WBC 6.1 RBC 4.55 Hgb 13.5 Hct 40.8 MCV 89.8 MCH 29.6 MCHC 33.0 RDW 14.3 Plt Count 166 MPV 8.2 Neut % (Auto) 40.2 L Lymph % (Auto) 39.7 [place] % (Auto) 15.6 H Eos % (Auto) 3.7 Baso % (Auto) 0.8 Neut # (Auto) 2.5 Lymph # (Auto) 2.4 [place] # (Auto) 1.0 H Eos # (Auto) 0.2 Baso # (Auto) 0.0 Sodium 138 Potassium 4.2 Chloride 105 Carbon Dioxide 26 Anion Gap 11 BUN 16 Creatinine 0.9 Est GFR ( Amer) > 60 Est GFR (Non-Af Amer) > 60 Random Glucose 97 Calcium 8.8 Total Bilirubin 0.2 AST 22 ALT 30 Alkaline Phosphatase 68 Troponin I < 0.0120 < 0.0120 NT-Pro-B Natriuret Pep 29.4 Total Protein 6.1 L Albumin 3.5 Globulin 2.6 Albumin/Globulin Ratio 1.3 01/30/19 12:08 WBC RBC Hgb Hct MCV MCH MCHC RDW Plt Count MPV Neut % (Auto) Lymph % (Auto) [place] % (Auto) Eos % (Auto) Baso % (Auto) Neut # (Auto) Lymph # (Auto) [place] # (Auto) Eos # (Auto) Baso # (Auto) Sodium Potassium Chloride Carbon Dioxide Anion Gap BUN Creatinine Est GFR ( Amer) Est GFR (Non-Af Amer) Random Glucose Calcium Total Bilirubin AST ALT Alkaline Phosphatase Troponin I < 0.0120 NT-Pro-B Natriuret Pep Total Protein Albumin Globulin Albumin/Globulin Ratio Assessment & Plan - Assessment and Plan (Free Text) Assessment: major depression recurrent severe without psychotic features panic disorder Plan: recommend to decrease klonopin gradually to 0.5mg tid recommend to discontinue seroquel through out the day and start seroquel 300mg qhs recommend to re evaluate the need for depakote as seroquel would be the current mood stabilizer and antidepressant on medical clearance pt to follow up at [facility] with his current provate psychiatrist
[2019-01-30] MEDS: Enoxaparin 40 mg Syringe SC SCH (16:06)
[2019-01-30 17:03] LABS: PARTIAL THROMBOPLASTIN TIME 33.2 Seconds (25.6-37.1)
[2019-01-30 17:09] LABS: D DIMER < 200 ng/mlDDU (0-230)
--- NOTE | 2019-01-30 19:27 | CARD ---
APPROVED REPORT Date of service: 01/30/2019 EXAM: Two-dimensional and M-mode echocardiogram with Doppler and color Doppler. Other Information Quality : GoodRhythm : NSR INDICATION ACS 2D DIMENSIONS IVSd1.21 (0.7-1.1cm)LVDd4.88 (3.9-5.9cm) LVOT Diameter2.49 (1.8-2.4cm)PWd1.04 (0.7-1.1cm) IVSs1.37 (0.8-1.2cm)LVDs4.00 (2.5-4.0cm) FS (%) 18.1 %PWs1.17 (0.8-1.2cm) M-Mode DIMENSIONS Left Atrium (MM)4.17 (2.5-4.0cm)IVSd1.03 (0.7-1.1cm) Aortic Root3.87 (2.2-3.7cm)LVDd5.86 (4.0-5.6cm) Aortic Cusp Exc.2.45 (1.5-2.0cm)PWd1.06 (0.7-1.1cm) IVSs1.65 cmFS (%) 40 % LVDs3.51 (2.0-3.8cm)PWs1.52 cm Aortic Valve AoV Peak Riwlxofy03.3cm/sAoV VTI17.4cmAO Peak GR.4mmHg LVOT Peak Psfxhbav97.8cm/sLVOT VTI17.15cmAO Mean GR.2mmHg [place] (VMAX)1.09cu2OHA (VTI)1.96cm2 Mitral Valve MV E Xiwhivja75.3cm/sMV DECEL EOSO875xlUI A Swhllnjg14.3cm/s MV WGH89dgS/A ratio0.8MVA (PHT)5.16cm2 TDI Lateral E' Peak V9.70cm/sMedial E' Peak V6.76cm/sE/Lateral E'5.0 E/Medial E'7.1 LEFT VENTRICLE The left ventricle is normal size. There is normal left ventricular wall thickness. The left ventricular systolic function is normal. The estimated ejection fraction is 55-60% No regional wall motion abnormalities noted.. Transmitral Doppler flow pattern is Grade I-abnormal relaxation pattern. No left ventricle thrombus noted on this study. There is no ventricular septal defect visualized. There is no left ventricular aneurysm. There is no mass noted in the left ventricle. RIGHT VENTRICLE The right ventricle is normal size. There is normal right ventricular wall thickness. The right ventricular systolic function is normal. ATRIA The left atrium is mildly dilated. The right atrium size is normal. The interatrial septum is intact with no evidence for an atrial septal defect. AORTIC VALVE The aortic valve is normal in structure. No aortic regurgitation is present. There is no aortic valvular stenosis. There is no aortic valvular vegetation. MITRAL VALVE The mitral valve is normal in structure. There is no evidence of mitral valve prolapse. There is no mitral valve stenosis. There is no mitral valve regurgitation noted. TRICUSPID VALVE The tricuspid valve is normal in structure. There is no tricuspid valve regurgitation noted. There is no tricuspid valve prolapse or vegetation. There is no tricuspid valve stenosis. PULMONIC VALVE The pulmonary valve is normal in structure. There is no pulmonic valvular regurgitation. There is no pulmonic valvular stenosis. GREAT VESSELS The aortic root is normal in size. The ascending aorta is normal in size. The pulmonary artery is normal. The IVC is normal in size and collapses >50% with inspiration. PERICARDIAL EFFUSION There is no pericardial effusion. There is no pleural effusion. <Conclusion> Technically difficult study The estimated ejection fraction is 55-60% Transmitral Doppler flow pattern is Grade I-abnormal relaxation pattern. The left atrium is mildly dilated. There is no tricuspid valve regurgitation noted.
--- NOTE | 2019-01-30 23:41 | CON ---
DATE: 01/30/2019 CARDIOLOGY CONSULTATION REASON FOR CONSULTATION: Chest pain. HISTORY OF PRESENT ILLNESS: The patient is a 53-year-old morbidly obese male who has a history of sleep apnea, history of depression, presents because of chest pain, which he describes as heaviness and he has shortness of breath. The patient also reports a tightness in his lower extremity. The patient denies any prior history of DVT or pulmonary embolism. The patient is unaware of any prior cardiac history. The patient denies any depression at this time or suicidal ideation. SOCIAL HISTORY: The patient is nonsmoker. MEDICATIONS: Currently, the patient is on aspirin 81 mg once a day, Depakote 500 mg twice a day, Klonopin 1 mg t.i.d., Lasix 20 mg intravenous twice a day, Seroquel 50 mg t.i.d. and 100 mg at bedtime. REVIEW OF SYSTEMS: No dizziness or syncope. No productive cough. No fever or chills. PHYSICAL EXAMINATION: GENERAL: The patient is a middle-aged male who does not appear to be in any distress. VITAL SIGNS: Blood pressure 130/87, heart rate 66, temperature 97.4, respiration 19. HEENT: Normocephalic. NECK: No JVD. CHEST: Diminished breath sounds over the bases. HEART: S1, S2. Regular and distant. ABDOMEN: Soft. EXTREMITIES: 1+ pitting edema. No calf tenderness. LABORATORY DATA: Today's hemoglobin and hematocrit 13.5 and 40.8, white count and platelet count are within normal limit. Today's SMA-7 is entirely within normal limits. Two sets of troponins are negative. EKG reveals sinus rhythm at rate of 84, nonspecific Q-wave changes. Abdominal ultrasound revealed two simple cysts in the liver, otherwise unremarkable examination. Chest x-ray revealed mild cardiomegaly, prominent bronchovascular markings. ASSESSMENT: 1. Chest pain, myocardial infarction ruled out. 2. History of depression. 3. Morbid obesity. 4. Sleep apnea. RECOMMENDATIONS: Continue aspirin 81 mg once a day, continue Lasix 20 mg intravenous twice a day. Continue Depakote, Klonopin, and Seroquel. Start Lovenox at 40 mg subcutaneous once a day. Obtain venous Doppler of the lower extremities. Obtain serum D-dimer. I will follow up the echocardiograph study performed today. Roberto Carlos Gonzalez MD [facility] # [id number]
--- NOTE | 2019-01-31 06:02 | HP ---
HISTORY OF PRESENT ILLNESS: This is a 53-year-old male with history of depression/anxiety, currently on disability. The patient is being followed by Psychiatry, and he is on multiple medications. The patient presented to emergency room for evaluation of excessive weight gain and swelling of the legs. The patient was also complaining of nonspecific chest pain which is across and it is at rest, not related to exertion and not radiated with intensity of 5 to 6 out of 7. The patient presents to emergency room for evaluation and admitted for further management. Other review of systems is negative. ALLERGIES: POSITIVE FOR SHELLFISH, LATEX, NUTS. SOCIAL HISTORY: Denied smoking, EtOH, or substance abuse. FAMILY HISTORY: Noncontributory. PAST MEDICAL HISTORY: As above. PHYSICAL EXAMINATION: GENERAL: The patient is in bed, not in any cardiopulmonary distress. VITAL SIGNS: Blood pressure 115/72, temperature 97.6, respiratory rate 18, and pulse of 74. HEENT: Pupils equal and reactive to light. Normal-appearing mucosa of the conjunctivae, oropharynx, and nasal membrane mucosa. NECK: Supple. No JVD. No carotid bruit. No lymph node. No thyromegaly. CHEST AND LUNGS: Bilateral symmetrical expansion. Good air exchange. No rales, no rhonchi. CARDIOVASCULAR SYSTEM: PMI not localized. S1, S2. No additional sounds. ABDOMEN: Normoactive bowel sounds. No tenderness, no organomegaly. EXTREMITIES: Positive edema of the right lower extremity. CENTRAL NERVOUS SYSTEM: Alert, awake, oriented x2. No neurological deficit could be appreciated. ASSESSMENT: 1. Atypical chest pain, myocardial infarction is ruled out. 2. Lower extremity edema, rule out deep venous thrombosis. 3. Depression. 4. Anxiety. PLAN: We will check venous Doppler of lower extremities. Cardiology consult. Echocardiogram. Psychiatry consult. Annia Ordaz MD
[2019-01-31] MEDS: Enoxaparin 40 mg Syringe SC SCH (08:48)
[2019-01-31 08:49] VITALS: RESP 20
[2019-01-31] MEDS: Divalproex 500 mg DR(BID formulation) PO SCH (09:03)
--- NOTE | 2019-01-31 11:35 | US ---
Date of service: 01/30/2019 PROCEDURE: Bilateral lower extremity venous duplex Doppler. HISTORY: swelling r leg COMPARISON: None available. TECHNIQUE: Bilateral common femoral, superficial femoral, popliteal and posterior tibial veins were evaluated. Flow was assessed with color Doppler, compressibility, assessment of phasic flow and augmentation response. FINDINGS: COMMON FEMORAL VEIN: Right CFV: Unremarkable. Left CFV: Unremarkable. SUPERFICIAL FEMORAL VEIN: Right SFV: Unremarkable. Left SFV: Unremarkable. POPLITEAL VEIN: Right Popliteal: Unremarkable. Left Popliteal: Unremarkable. POSTERIOR TIBIAL VEIN: Right PTV: Unremarkable. Left PTV: Unremarkable. OTHER FINDINGS: None. IMPRESSION: No evidence of deep venous thrombosis.
[2019-01-31 12:41] VITALS: BP 112/70; TEMP 97.9; O2SAT 99
[2019-01-31 16:27] VITALS: PULSE 110
--- NOTE | 2019-01-31 22:43 | DS ---
REASON FOR ADMISSION: This is a 53-year-old male with history of anxiety and depression, was admitted for atypical chest pain and right lower extremity swelling. COURSE OF HOSPITALIZATION: The patient was admitted to telemetry floor and myocardial infarction was ruled out by negative cardiac enzymes. The patient had an echocardiogram that did not show any significant abnormality. The patient had a cardiology evaluation done by Dr. Gonzalez and cleared for discharge. The patient had also a psych consult. The patient was discharged and asked to follow up with his psychiatrist as an outpatient. The patient did not have any lower abdominal mass or pain. The patient had venous Doppler of both lower extremities that did not show any DVT. The patient is believed to have venous insufficiency of the right lower extremity and he is prescribed compression stocking. FINAL DIAGNOSES: 1. Atypical chest pain, less likely cardiac in origin. 2. Obesity. 3. Anxiety/depression. [facility] MD [place]
== END 2019-01-31 15:55 | disposition home or self-care (01) ==
LOC: H.ER 19:52 → INTOOBSV 22:25 → H.ERHOLD 22:25 → OBSVTOIN 22:25 → H.TEL 01-30 02:02
PROVIDERS: ADMIT Internal Medicine; ATTEND Internal Medicine
DX: R07.89 Other chest pain (principal); F41.0 Panic disorder [episodic paroxysmal anxiety]; F33.2 Major depressive disorder, recurrent severe without psychotic features; E66.01 Morbid (severe) obesity due to excess calories; K21.9 Gastro-esophageal reflux disease without esophagitis; G47.30 Sleep apnea, unspecified; Z91.040 Latex allergy status; Z91.018 Allergy to other foods; Z91.013 Allergy to seafood
CPT/HCPCS: 36415; 71046; 76700; 80053; 83036; 83880; 84484; 85025; 85378; 85730; 93005; 93306; 93970; 94660; 96372; 96374; 96376; 99285; G0378; J1650; J1940